=== PATIENT | female | born 1995 | race Two or more races ===

== ENCOUNTER 2025-06-13 04:48 | Outpatient (CLI) | payer OTHER ==
[2025-06-13 03:52] VITALS: BP 115/68
[2025-06-13 04:34] VITALS: BP 115/68
[2025-06-13] MEDS ORDERED: RINGERS SOLUTION,LACTATED 1,000 ML IV SCH (05:30)
[2025-06-13] MEDS ORDERED: PRENATAL + DHA1 EAC1 PO (05:57)
[2025-06-13] MEDS ORDERED: IRON PO (05:58)
[2025-06-13 06:23] LABS: BASO % 0.3 % (0.1-1.2); EOS # 0.13 (0.04-0.54); EOS % 1.0 % (0.7-7.0); LYMPH # 1.57 (1.18-3.74); LYMPH % 12.1 % (19.3-53.1); MEAN PLATELET VOLUME 12.00 fl (9.4-12.4); MONO # 0.63 (0.24-0.82); MONO % 4.8 % (4.7-12.5); NEUT # 10.57 (1.56-6.13); NEUT % 81.3 % (34.0-71.1); RED CELL DISTRIBUTION WIDTH 13.3 % (11.6-14.4)
[2025-06-13 06:30] LABS: URINE APPEARANCE Clear; URINE BILIRRUBIN Negative (NEGATIVE); URINE BLOOD Negative; URINE COLOR Yellow; URINE GLUCOSE Negative (NEGATIVE); URINE KETONE Negative (NEGATIVE); URINE LEUKOCYTE Negative; URINE NITRATE Negative; URINE PROTEIN Negative (NEGATIVE); URINE UROBILINOGEN 0.2 E.U./dl
[2025-06-13 06:31] LABS: URINE BACTERIA 23.9 uL (0.0-1933); URINE EPITHELIAL CELLS 3.5 uL (0.0-38.8); URINE WBC 5.8 uL (0.0-23.2)
[2025-06-13 06:33] LABS: URINE CAST 0.00 uL (0.0-1.40); URINE RBC 0.7 uL (0.0-20.8)
[2025-06-13 06:55] LABS: INR 0.94
[2025-06-13 07:10] LABS: ALT/SGPT 35.0 U/L (12-78); AST/SGOT 22.0 U/L (15-37); BILIRUBIN TOTAL 0.45 mg/dL (0.3-1.2); BUN CREA RATIO 14.0 (7.0-25.0); CREATININE SERUM 0.58 mg/dL (0.55-1.02); GFR 120.47; GLOBULINA 3.4 G/DL (2.4-3.5); GLUCOSE FASTING 83.0 mg/dL (65-100); OSMOLALITY SERUM 281.0 MOSM/KG (275-295)
[2025-06-13 07:57] VITALS: BP 125/74
[2025-06-13 10:13] VITALS: BP 125/74
== END 2025-06-13 10:16 | disposition home or self-care (01) ==
LOC: OBS/DEL 04:48
PROVIDERS: Student in an Organized Health Care Education/Training Program; ATTEND Specialist
DX: O26.893 Other specified pregnancy related conditions, third trimester (principal); Z3A.39 39 weeks gestation of pregnancy

== ENCOUNTER 2025-06-13 21:51 | Inpatient (IN) | payer OTHER ==
[~2025-06-13] VITALS: Ht 170.2 cm; Wt 65.3 kg
[2025-06-13 21:19] VITALS: BP 130/85
[~2025-06-13 21:51] MED LIST: IRON PO; PRENATAL + DHA1 EAC1 PO
[2025-06-13] MEDS ORDERED: AMPICILLIN SODIUM 2,000 MG VIAL IV ONE (22:15)
[2025-06-13] MEDS ORDERED: RINGERS SOLUTION,LACTATED 1,000 ML IV SCH (22:15)
[2025-06-13 23:30] VITALS: BP 126/67
[2025-06-14] VITALS (10 sets, daily range): BP systolic 120–136; BP diastolic 71–91
[2025-06-14] MEDS ORDERED: AMPICILLIN SODIUM 1,000 MG VIAL IV SCH (01:00)
[2025-06-14] MEDS ORDERED: OXYTOCIN 20 UNITS/500ML RL PIGGYBAG IV ONE (17:38)
[2025-06-14] MEDS ORDERED: OXYTOCIN 20 UNITS/500ML RL PIGGYBAG IV SCH (18:00)
[2025-06-14] MEDS ORDERED: ERYTHROMYCIN BASE OPHT 1GM EACH TUBE OP ONE ×2 (18:20→21:45)
[2025-06-14] MEDS ORDERED: LIDOCAINE HCL 1% 10ML VIAL ONE (18:21)
[2025-06-14] MEDS ORDERED: OXYTOCIN 20 UNITS/1000ML RL PIGGYBAG IV ONE ×2 (18:21→21:24)
[2025-06-14] MEDS ORDERED: CHLORHEXIDINE GLUCONATE 120 ML BOTTLE TOP ONE ×2 (18:21→21:45)
[2025-06-14] MEDS ORDERED: LIDOCAINE HCL 1% 10ML VIAL IJ ONE (21:45)
[2025-06-14] MEDS ORDERED: OXYTOCIN 1,000 ML IV SCH (21:45)
[2025-06-15] VITALS: BP 107/67
[2025-06-15 09:40] VITALS: BP 120/78
[2025-06-15 16:02] VITALS: BP 111/73
[2025-06-16 00:35] VITALS: BP 112/70
[2025-06-16 09:04] VITALS: BP 118/76
[2025-06-16 15:00] VITALS: BP 121/78
== END 2025-06-16 15:54 | disposition home or self-care (01) | DRG 807 ==
LOC: OBS/DEL 21:51 → OB/GYN 06-14 08:30 → OBS/DEL 06-14 08:30 → LDR 06-14 08:30 → OB/GYN 06-14 22:56
PROVIDERS: ADMIT Specialist; ATTEND Specialist
PROC: 10E0XZZ Delivery of Products of Conception, External Approach (ICD-10-PCS; principal; 2025-06-14)
PROC: 0KQM0ZZ Repair Perineum Muscle, Open Approach (ICD-10-PCS; 2025-06-14)
PROC: 4A1HXCZ Monitoring of Products of Conception, Cardiac Rate, External Approach (ICD-10-PCS; 2025-06-14)
DX: O70.1 Second degree perineal laceration during delivery (principal); O69.81X0 Labor and delivery complicated by cord around neck, without compression, not applicable or unspecified; O99.824 Streptococcus B carrier state complicating childbirth; Z37.0 Single live birth; Z3A.39 39 weeks gestation of pregnancy